=== PATIENT | female | born 1950 | race Caucasian/White ===

== ENCOUNTER 2016-12-04 09:01 | Day surgery (SDC) | payer MEDICARE, BC ==
--- NOTE | ~2016-12-04 | EGD ---
EGD REPORT [facility] [address] [address] NAME: KAVITHA DEL CID : [birth year] STATUS : REG [facility]#: [id number] AGE: 66 ADM/REG DATE : 12/04/16 MR#: [id number] REPORT SERV DATE: 12/04/16 DICTATED BY: ENRRIQUE BRIGGS DATE: 12/04/16 REPORT STATUS : Draft [facility] DATE: 12/04/16 Endoscopy Center Patient Name: Kavitha Del Cid Date of : 1950 Attending MD: ENRRIQUE BRIGGS MD Procedure Date No Time: 12/04/2016 Procedure: Upper GI endoscopy Indications: Suspected gastro-esophageal reflux disease Referring MD: Jerson DIAZ Medicines: See the Anesthesia note for documentation of the administered medications Complications: No immediate complications. Procedure: Pre-Anesthesia Assessment: - ASA Grade Assessment: IV - A patient with severe systemic disease that is a constant threat to life. After obtaining informed consent, the endoscope was passed under direct vision. Throughout the procedure, the patient's blood pressure, pulse, and oxygen saturations were monitored continuously. The GIF [id number] was introduced through the mouth, and advanced to the second part of duodenum. The upper GI endoscopy was accomplished without difficulty. The patient tolerated the procedure well. Findings: A 2 cm hiatus hernia was present. Mild inflammation was found in the gastric antrum. Biopsies were taken with a cold forceps for histology. The cardia and gastric fundus were normal on retroflexion. Erythematous mucosa was found in the duodenal bulb. Impression: - Hiatus hernia. - Gastritis. Biopsied. - Erythematous duodenopathy. Recommendation: - Patient has a contact number available for emergencies. The signs and symptoms of potential delayed complications were discussed with the patient. Return to normal activities tomorrow. Written discharge instructions were provided to the patient. - Regular diet. - Continue present medications. - FOR YOUR BIOPSY RESULTS: Please go to [email or web address] and register to receive your results via the portal. Your biopsy results will be EGD REPORT [address] [address] NAME: KAVITHA DEL CID : [birth year] STATUS : REG [facility] PAT#: [id number] AGE: 66 ADM/REG DATE : 12/04/16 MR#: [id number] REPORT SERV DATE: 12/04/16 DICTATED BY: ENRRIQUE BRIGGS DATE: 12/04/16 REPORT STATUS : Draft TRANSCRIBED BY: [employer] DATE: 12/04/16 posted there in about 7 to 10 days. IF you do not see result in 10 days, call office. Procedure Code(s): --- Professional --- 51576, Esophagogastroduodenoscopy, flexible, transoral; with biopsy, single or multiple Diagnosis Code(s): --- Professional --- K44.9, Diaphragmatic hernia without obstruction or gangrene K29.70, Gastritis, unspecified, without bleeding K31.89, Other diseases of stomach and duodenum CPT copyright 2013 [employer]. All rights reserved. The codes documented in this report are preliminary and upon layout man review may be revised to meet current compliance requirements. Enrrique Briggs MD ENRRIQUE BRIGGS MD 12/04/2016 10:44 AM This report has been signed electronically. Number of Addenda: 0 Note Initiated On: 12/04/2016 10:34 AM Scope Withdrawal Time 0 hours 0 minutes 0 seconds [id number] [place] [address]
--- NOTE | ~2016-12-04 | EGD ---
EGD REPORT [facility] [address] [address] NAME: KAVITHA DEL CID : [birth year] STATUS : REG [facility]#: [id number] AGE: 66 ADM/REG DATE : 12/04/16 MR#: [id number] REPORT SERV DATE: 12/04/16 DICTATED BY: ENRRIQUE BRIGGS DATE: 12/04/16 REPORT STATUS : Draft TRANSCRIBED BY: [facility] DATE: 12/04/16 Endoscopy Center Patient Name: Kavitha Del Cid Date of : 1950 Attending MD: ENRRIQUE BRIGGS MD Procedure Date No Time: 12/04/2016 Procedure: Colonoscopy Indications: Surveillance: History of piecemeal removal adenoma on last colonoscopy (< 1 yr), High risk colon cancer surveillance: Personal history of colon cancer Referring MD: ZIA FARRELL Medicines: See the Anesthesia note for documentation of the administered medications Complications: No immediate complications. Procedure: Pre-Anesthesia Assessment: - ASA Grade Assessment: IV - A patient with severe systemic disease that is a constant threat to life. After I obtained informed consent, the scope was passed under direct vision. Throughout the procedure, the patient's blood pressure, pulse, and oxygen saturations were monitored continuously. The PCF [id number] was introduced through the anus and advanced to the terminal ileum, with identification of the appendiceal orifice and IC valve. The colonoscopy was performed without difficulty. The patient tolerated the procedure well. The quality of the bowel preparation was adequate. Findings: The perianal and digital rectal examinations were normal. Internal hemorrhoids were found during retroflexion and were small. Impression: - Internal hemorrhoids. Recommendation: - Patient has a contact number available for emergencies. The signs and symptoms of potential delayed complications were discussed with the patient. Return to normal activities tomorrow. Written discharge instructions were provided to the patient. - Regular diet. - Continue present medications. - Repeat colonoscopy in 3 years for surveillance. Procedure Code(s): --- Professional --- 03652, Colonoscopy, flexible, proximal to splenic flexure; diagnostic, with or without collection of EGD REPORT [facility] [address] [place]. [address] NAME: KAVITHA DEL CID : [birth year] STATUS : REG [facility] PAT#: [id number] AGE: 66 ADM/REG DATE : 12/04/16 MR#: [id number] REPORT SERV DATE: 12/04/16 DICTATED BY: ENRRIQUE BRIGGS DATE: 12/04/16 REPORT STATUS : Draft TRANSCRIBED BY: [employer] DATE: 12/04/16 specimen(s) by brushing or washing, with or without colon decompression (separate procedure) Diagnosis Code(s): --- Professional --- K64.8, Other hemorrhoids Z86.010, Personal history of colonic polyps Z85.038, Personal history of other malignant neoplasm of large intestine CPT copyright 2013 [employer]. All rights reserved. The codes documented in this report are preliminary and upon renewals specialist review may be revised to meet current compliance requirements. Enrrique Briggs MD ENRRIQUE BRIGGS MD 12/04/2016 10:57 AM This report has been signed electronically. Number of Addenda: 0 Note Initiated On: 12/04/2016 10:06 AM Scope Withdrawal Time 0 hours 7 minutes 38 seconds [id number] [place] [address]
[~2016-12-04 09:01] MED LIST: ARIMIDEX1 PO; ATEN25 PO; FEMARA PO; FOSAMAX70 MG PO; IBRANCE100 PO; PRAVAC PO; XGEVA120 MG/1.7 SC
== END 2016-12-04 23:59 | disposition home or self-care (01) ==
LOC: DMU 09:01
PROVIDERS: Internal Medicine Gastroenterology
PROC: 0DJD8ZZ Inspection of Lower Intestinal Tract, Via Natural or Artificial Opening Endoscopic (ICD-10-PCS; principal; 2016-12-04 10:30)
PROC: 0DB68ZX Excision of Stomach, Via Natural or Artificial Opening Endoscopic, Diagnostic (ICD-10-PCS; 2016-12-04 10:30)
DX: K64.8 Other hemorrhoids (principal); K29.50 Unspecified chronic gastritis without bleeding; K44.9 Diaphragmatic hernia without obstruction or gangrene; K31.89 Other diseases of stomach and duodenum; K21.9 Gastro-esophageal reflux disease without esophagitis; D64.9 Anemia, unspecified; G47.33 Obstructive sleep apnea (adult) (pediatric); E78.00 Pure hypercholesterolemia, unspecified; M19.90 Unspecified osteoarthritis, unspecified site; Z85.05 Personal history of malignant neoplasm of liver; Z86.010 Personal history of colon polyps; Z85.038 Personal history of other malignant neoplasm of large intestine; Z90.49 Acquired absence of other specified parts of digestive tract; Z98.890 Other specified postprocedural states
CPT/HCPCS: 88305